=== PATIENT | female | born 1970 | race Caucasian/White ===

== ENCOUNTER 2019-02-07 10:52 | Day surgery (SDC) | payer BC ==
[2019-02-06 13:51] VITALS: BMI 31.8
[2019-02-07 12:19] LABS: #Basophils 0.1 thou/uL (0.0-0.2); #Eosinphils 0.1 thou/uL (0.0-0.7); #Lymphocytes 3.1 thou/uL (1.20-3.40); #Monocytes 0.5 thou/uL (0.11-0.59); #Neutrophils 3.4 thou/uL (1.40-6.50); %Basophils 1.3 % (0.0-1.0); %Eosinophils 1.7 % (0.0-10.0); %Lymphocytes 42.8 % (21.0-51.0); %Monocytes 6.4 % (0.0-10.0); %Neutrophils 47.9 % (42.0-75.0); Hemoglobin 12.8 g/dL (12.0-16.0); Mean Corpuscular HGB CONC 33.4 g/dL (32.0-36.0); Mean Corpuscular Hemoglobin 29.5 pg (27.0-31.0); Mean Corpuscular Volume 88.4 fL (78.0-98.0); Mean Platelet Volume 8.2 fL (7.4-10.4); Platelet Count 223 thou/uL (130-400); Red Blood Cell (RBC) Count 4.35 mill/uL (4.20-5.40); White Blood Cell (WBC) Count 7.2 thou/uL (4.8-10.8)
[2019-02-07 12:36] LABS: Anion Gap 13 mmol/L (10-20); BUN (Urea Nitrogen) 21 mg/dL (7.0-18.7); Calc. Creatinine Clearance 160 mL/min (70-130); Carbon Dioxide 24 mmol/L (22-29); Chloride 105 mmol/L (98-107); Estimated GFR-MDRD Greater than 90; Glucose 85 mg/dL (70-105); Potassium 3.5 mmol/L (3.5-5.1); Sodium 138 mmol/L (136-145)
[2019-02-07 12:44] LABS: INR-International Normal Ratio 1.1; PTT 29.8 SEC (22.9-36.1)
[2019-02-07] MEDS ORDERED: PROPOFOL 200 MG/20 ML VIAL ONE (16:51)
--- NOTE | 2019-02-11 22:41 | EKG ---
Test Reason : PREOP MUNDO Blood Pressure : / mmHG Vent. Rate : 057 BPM Atrial Rate : 352 BPM P-R Int : 000 ms QRS Dur : 144 ms QT Int : 504 ms P-R-T Axes : 000 -53 127 degrees QTc Int : 490 ms Atrial flutter with variable A-V block Left axis deviation Left bundle branch block Abnormal ECG When compared with ECG of 03-APR-2016 23:54, (Unconfirmed) Atrial flutter has replaced Atrial fibrillation Left bundle branch block is now Present Criteria for Septal infarct are no longer Present Confirmed by Sandra HERNANDEZ ([id number]) on 02/11/2019 10:41:26 PM Referred By: VERONIKA Confirmed By:Sandra HERNANDEZ
--- NOTE | 2019-02-11 22:42 | EKG ---
Test Reason : POST MUNDO/CARDIOVERSI Blood Pressure : / mmHG Vent. Rate : 050 BPM Atrial Rate : 050 BPM P-R Int : 000 ms QRS Dur : 150 ms QT Int : 518 ms P-R-T Axes : 083 -25 112 degrees QTc Int : 472 ms Sinus bradycardia with 1st degree A-V block with Blocked Premature atrial complexes with occasional P remature ventricular complexes Left bundle branch block Abnormal ECG When compared with ECG of 07-FEB-2019 11:47, (Unconfirmed) Sinus rhythm has replaced Atrial flutter Confirmed by Sandra HERNANDEZ ([id number]) on 02/11/2019 10:41:49 PM Referred By: VERONIKA Confirmed By:Sandra HERNANDEZ
--- NOTE | 2019-02-21 16:43 | OP ---
DATE OF SERVICE: 02/07/19 PREPROCEDURE DIAGNOSIS: Atrial fibrillation. The patient is a pleasant 48-year-old white female who comes to the to the hospital for planned MUNDO c ardioversion. Please see MUNDO report for details. After adequate sedation was achieved by the anesthesiology department and cleared by the MUNDO, one sin gle AICD shock was delivered at 100 joules successfully converting her from atrial fibrillation into sinus rhythm. The patient tolerated the procedure well. RECOMMENDATIONS: 1. Continued antiarrhythmic and anticoagulation. 2. Will follow-up in the office in one month.
== END 2019-02-07 14:10 | disposition home or self-care (01) ==
LOC: CCL 10:52
PROVIDERS: ATTEND Internal Medicine Cardiovascular Disease
DX: I48.91 Unspecified atrial fibrillation (principal); I42.9 Cardiomyopathy, unspecified; Z79.82 Long term (current) use of aspirin; Z88.0 Allergy status to penicillin
CPT/HCPCS: 80048; 85025; 85610; 85730; 92960; 93005; 93010; 93312; J2704

== ENCOUNTER 2019-11-27 06:18 | Outpatient (CLI) | payer BC, OTHER ==
[2019-11-27 09:25] VITALS: BMI 33.3
[2019-11-27 10:33] LABS: #Basophils 0.1 thou/uL (0.0-0.2); #Eosinphils 0.1 thou/uL (0.0-0.7); #Monocytes 0.4 thou/uL (0.11-0.59); #Neutrophils 3.9 thou/uL (1.40-6.50); %Basophils 1.1 % (0.0-1.0); %Eosinophils 1.4 % (0.0-10.0); %Lymphocytes 30.8 % (21.0-51.0); %Monocytes 6.2 % (0.0-10.0); %Neutrophils 60.4 % (42.0-75.0); Hemoglobin 13.5 g/dL (12.0-16.0); Mean Corpuscular HGB CONC 32.1 g/dL (32.0-36.0); Mean Corpuscular Hemoglobin 28.6 pg (27.0-31.0); Mean Corpuscular Volume 89.1 fL (78.0-98.0); Mean Platelet Volume 8.5 fL (7.4-10.4); Platelet Count 237 thou/uL (130-400); RBC Distribution Width 13.8 % (11.5-14.5); Red Blood Cell (RBC) Count 4.73 mill/uL (4.20-5.40); White Blood Cell (WBC) Count 6.4 thou/uL (4.8-10.8)
[2019-11-27 10:37] LABS: PTT 34.9 sec (22.9-36.1); Prothrombin Time 13.6 sec (12.0-14.7)
[2019-11-27 11:18] LABS: Anion Gap 13 mmol/L (10-20); BUN (Urea Nitrogen) 19 mg/dL (7.0-18.7); Calc. Creatinine Clearance 153 mL/min (70-130); Calcium 9.3 mg/dL (7.8-10.44); Carbon Dioxide 23 mmol/L (22-29); Chloride 107 mmol/L (98-107); Estimated GFR-MDRD 85; Glucose 98 mg/dL (70-105); Potassium 4.1 mmol/L (3.5-5.1); Sodium 139 mmol/L (136-145)
[2019-11-27 18:20] LABS: SARS-CoV-2 MS2 Positive; SARS-CoV-2 N Gene Negative; SARS-CoV-2 S Gene Negative; SARS-CoV-2 orf1ab Negative
== END 2019-11-27 06:19 | disposition home or self-care (01) ==
LOC: LABBT 06:18
PROVIDERS: ATTEND Internal Medicine Cardiovascular Disease
DX: Z01.818 Encounter for other preprocedural examination (principal); Z11.59 Encounter for screening for other viral diseases; I48.91 Unspecified atrial fibrillation
CPT/HCPCS: 80048; 85025; 85610; 85730; 87635; 93005; 93010; U0003

== ENCOUNTER 2019-12-01 07:23 | Observation (INO) | payer BC ==
[2019-12-01] MEDS ORDERED: Fentanyl 100 MCG/2 ML VIAL ONE (09:53)
[2019-12-01] MEDS ORDERED: Heparin 10,000 UNITS/1 ML VIAL ONE ×2 (11:15→13:33)
[2019-12-01] MEDS ORDERED: Ondansetron PF 4 MG/2 ML Vial ONE (13:15)
[2019-12-01] MEDS ORDERED: Lidocaine 1% PF 5 ML VIAL ONE (13:15)
[2019-12-01] MEDS ORDERED: Rocuronium Bromide 10 MG/ML (10ML VIAL) ONE (13:15)
[2019-12-01] MEDS ORDERED: Dexamethasone 20 MG/5 ML VIAL ONE (13:15)
[2019-12-01] MEDS ORDERED: Glycopyrrolate 0.2 MG/ML 5 ML SYRINGE ONE (13:15)
[2019-12-01] MEDS ORDERED: PROPOFOL 200 MG/20 ML VIAL ONE (13:15)
[2019-12-01] MEDS ORDERED: EPHEDRINE 25 MG/5 ML SYRINGE ONE (13:15)
[2019-12-01] MEDS ORDERED: Isoproterenol 0.2 MG/1 ML AMP ONE (13:33)
[2019-12-01] MEDS ORDERED: Heparin 25,000 units/D5W 500 ML ONE (13:33)
[2019-12-01] MEDS ORDERED: Protamine Sulfate 50 MG/5 ML VIAL ONE (14:44)
[2019-12-01] MEDS ORDERED: Promethazine HCl 25 MG/ML VIAL ONE (15:12)
[2019-12-01] MEDS ORDERED: Ketorolac Tromethamine 30 MG/ML VIAL IVP PRN (15:27)
[2019-12-01] MEDS ORDERED: Acetaminophen/Codeine 30-300mg Tablet PO PRN ×2 (15:30)
--- NOTE | 2019-12-01 15:53 | OP ---
DATE OF PROCEDURE: 12/01/2019 PROCEDURE PERFORMED: Electrophysiology study and radiofrequency ablation. REASON FOR PROCEDURE: Ms. Lockett is a 49-year-old woman with history of longstanding atrial fibrillation. Last cardioversion was in 2016. She has now typical like atrial fibrillation at her young age with previous failure with antiarrhythmic agent. Plan is to undergo a pulmonary venous isolation. She has been anticoagulated over months. DESCRIPTION OF PROCEDURE: The patient received general anesthesia by anesthesia specialist. After adequate level of sedation achieved, the left and right femoral venous area was prepped, draped, and anesthetized using subcutaneous lidocaine. Under ultrasound guidance, both femoral veins were cannulated x2 with a multipurpose needle. On the left side, an 11-Irish sheath was used to advance an intracardiac echocardiogram probe, which was used throughout the procedure to monitor catheter manipulation, pericardial space, and the transseptal procedure. Also from the left femoral vein, we advanced a duo-Deca catheter, which was then positioned in the right atrium and CS positions. With the right femoral venous sheaths, two 8-Irish short sheaths were introduced in a similar fashion to the left. Through the sheath, a ThermoCool SFST catheter was advanced to the right atrium. 3D map of the right atrium, His bundle, CS, os, and isthmus location was obtained. Following that, the patient is in atrial fibrillation at baseline, transseptal puncture was performed after IV heparin was administered in a bolus and a drip fashion. IV heparin was periodically adjusted according to the ACT measurement to keep ACT levels over 350 throughout the case. The transseptal sheaths were used to perform transseptal puncture with the help of a powered Ryan needle under ultrasound and fluoroscopic guidance x2. Through the SL1 transseptal sheaths, a ThermoCool SFST catheter and a 20-pole Lasso catheter were advanced to the left atrium. 3D map of the left atrium was obtained with noting a left common femoral vein at 2 separate right-sided veins. Significant scar burden was noted in the left atrium and right atrium both. Following that, both right-sided pulmonary vein and the left-sided pulmonary vein was isolated with circumferential ablations. Also, a roof line and an inferoposterior line was placed to isolate the posterior wall. Throughout the posterior wall burst, esophageal echocardiogram probe was used to measure temperatures to avoid excessive heating. Any heating in excess seen prompted high-flow irrigation in that area for advanced cooling. Following this, the patient remained in atrial fibrillation. Therefore, inferior wall ablation was performed over the CS roof. Also, additional lesions were placed in the left anterior inferior area anterior to the left pulmonary vein. Additional lesions were also placed in the right posterior septum and anteroseptal area at the site of significant fractionation. Despite these efforts, the patient remained in atrial fibrillation. At this point, cardioversion was performed, restoring sinus rhythm. Occasional PACs were seen and atrial flutter was spontaneously induced. Atrial flutter with cycle length of 330 milliseconds with typical activation from proximal CS to distal seen. Proximal CS overdrive pacing entering the tachycardia in the post pacing interval was closed matching the tachycardia cycle length, suggestive of right atrial origin. The ablation catheter was then withdrawn from the left side and a cavotricuspid isthmus ablation was performed, prolonging the transisthmus time up to 240 milliseconds. Transisthmus block was demonstrated by longest transisthmus time measured by the ablation line. Following that, no further atrial flutter is seen. Isuprel was administered and all 4 pulmonary veins were rechecked. Any reconnection was re-ablated. At the end of the case, the pericardial space showed no change or significant effusion. Also, the cardiac silhouette did not change. The catheter was removed from the left side and IV heparin was stopped and reversed with protamine. The long sheaths were exchanged for short sheaths again and the sheaths were closed using a Vascade closure device on all femoral venous access sites under ultrasound guidance. 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 Following findings were noted. HV interval was 56 milliseconds. No definite VA conduction through LV pacing is seen. Total of 111 lesions placed at 40 lamb with RF duration 35 minutes and 3 seconds. CONCLUSION: 1. Successful isolation of the 2 right and left common pulmonary vein as well as the posterior wall. 2. Additional lesion in the inferior left atrium over the CS roof and the intra-atrial septum was placed on the left atrium. 3. No evidence of accessory pathway. 4. Typically an isthmus within the atrial flutter is seen and the cavotricuspid isthmus was ablated successfully. PLAN: Resume oral anticoagulation. Monitor for recurrent arrhythmias. Job ID: [id number]
[2019-12-01 17:26] VITALS: BMI 34.8
[2019-12-01] MEDS: Apixaban 5 MG TAB PO SCH (20:13)
[2019-12-01] MEDS ORDERED: Zolpidem Tartrate 5 MG TAB PO SCH (21:00)
[2019-12-02] MEDS ORDERED: Aspirin Chewable 81 MG TAB PO SCH (09:00)
[2019-12-02] MEDS ORDERED: Metoprolol Tartrate 25 MG TAB PO SCH (09:00)
[2019-12-02] MEDS: Apixaban 5 MG TAB PO SCH (10:17)
[2019-12-02 12:29] VITALS: BP 121/63; TEMP 96.7
--- NOTE | 2019-12-02 16:24 | EKG ---
Test Reason : Blood Pressure : / mmHG Vent. Rate : 064 BPM Atrial Rate : 064 BPM P-R Int : 310 ms QRS Dur : 152 ms QT Int : 540 ms P-R-T Axes : 088 -53 103 degrees QTc Int : 557 ms Sinus rhythm with 1st degree A-V block with occasional Premature ventricular complexes Left axis deviation Left bundle branch block Abnormal ECG Confirmed by EBONY MISHRA ([id number]) on 12/02/2019 4:23:43 PM Referred By: Confirmed By:EBONY MISHRA
--- NOTE | 2019-12-02 16:25 | EKG ---
Test Reason : Blood Pressure : / mmHG Vent. Rate : 079 BPM Atrial Rate : 079 BPM P-R Int : 322 ms QRS Dur : 138 ms QT Int : 442 ms P-R-T Axes : 078 -43 127 degrees QTc Int : 506 ms Sinus rhythm with 1st degree A-V block with Premature atrial complexes with Abberant conduction Left axis deviation Non-specific intra-ventricular conduction block Inferior infarct , age undetermined Cannot rule out Anteroseptal infarct , age undetermined T wave abnormality, consider lateral ischemia Abnormal ECG Confirmed by EBONY MISHRA ([id number]) on 12/02/2019 4:24:38 PM Referred By: LUNA Confirmed By:EBONY MISHRA
--- NOTE | 2019-12-02 22:11 | DIS ---
DATE OF ADMISSION: 12/01/2019 DATE OF DISCHARGE: 12/02/2019 DIAGNOSIS: Atrial fibrillation, longstanding and persistent. PROCEDURES PERFORMED: Include electrophysiology study with three-dimensional mapping and ablation, 35 minutes RF energy lesions delivered. CONCLUSION: Successful isolation of the 2 right and left common pulmonary veins as well as a posterior wall, ablation of typical atrial flutter along the cavotricuspid isthmus line successful. PLAN AND RECOMMENDATIONS: Resume anticoagulation. Monitor for arrhythmia recurrence. HISTORY OF PRESENT ILLNESS: Ms. Lockett is a 49-year-old woman with a history of longstanding and persistent atrial fibrillation. She was more recently found to be in typical atrial flutter and elected to undergo electrophysiology study and ablation. This was performed on 12/01/2019 as detailed above. She is doing well and tolerated this without any postablation complications thus far. Her vital signs have been stable. She feels well and is eager to discharge home. Telemetry shows she is maintaining sinus rhythm with no early recurrence of her atrial arrhythmias. She is seen to have noticeable first-degree AV block of 322 milliseconds. In addition to an atypical left bundle-branch block, QRS of 138 milliseconds. Frequent ventricular ectopy was noted. Following the ablation, which is quieted down, but is still occurring at some regularity. SUBJECTIVE: The patient feels well. She denies any cardiac concerns or complaints, bleeding at the groin site or palpitations. She does endorse some minor chest discomfort post ablation. OBJECTIVE: VITAL SIGNS: Stable. Heart rate 71, blood pressure 121/64, respirations 16, and oxygen 94% on room air. GENERAL: The patient is alert and oriented. Speech is clear. Affect is appropriate. She is in no apparent distress. NEUROLOGIC: Grossly intact. NECK: Supple without jugular venous distention. HEART: Rate is irregularly irregular with crisp S1 and S2. LUNGS: Clear to auscultation bilaterally. SKIN: Bilateral groin sites are stable without evidence of hematoma or bleeding complication. Hepatojugular reflux is negative. DISCHARGE INSTRUCTIONS: No lifting more than 10 pounds or driving a car for 1 week. No soaking baths until bilateral groin sites are well healed. No missing any doses of Eliquis or anticoagulation post ablation. Contact [facility] with any postablation concerns, questions, and follow up in 6 weeks. DISCHARGE MEDICATIONS INSTRUCTION: Resuming home medications of; 1. Ambien as needed. 2. Metoprolol tartrate 12.5 mg b.i.d. 3. Aspirin 81 mg daily. 4. Eliquis 5 mg b.i.d. New prescriptions; 1. Carafate 1 g q.i.d. x2 weeks. 2. Protonix 40 mg daily x1 month, then she may resume her home omeprazole dose. 3. Lasix 40 mg p.o. p.r.n. edema to be taken with Klor-Con 20 mEq. CONDITION AT DISCHARGE: Stable. Job ID: [id number]
== END 2019-12-02 12:45 | disposition home or self-care (01) ==
LOC: SDC 07:23 → 2NO 15:23
PROVIDERS: ADMIT Internal Medicine Cardiovascular Disease; ATTEND Internal Medicine Cardiovascular Disease
PROC: 02583ZZ Destruction of Conduction Mechanism, Percutaneous Approach (ICD-10-PCS; principal; 2019-12-01)
PROC: 02K83ZZ Map Conduction Mechanism, Percutaneous Approach (ICD-10-PCS; 2019-12-01)
PROC: 4A023FZ Measurement of Cardiac Rhythm, Percutaneous Approach (ICD-10-PCS; 2019-12-01)
PROC: 4A0234Z Measurement of Cardiac Electrical Activity, Percutaneous Approach (ICD-10-PCS; 2019-12-01)
DX: I48.11 Longstanding persistent atrial fibrillation (principal); I48.3 Typical atrial flutter; I44.7 Left bundle-branch block, unspecified; I49.3 Ventricular premature depolarization; I42.9 Cardiomyopathy, unspecified; R63.8 Other symptoms and signs concerning food and fluid intake; Z68.34 Body mass index [BMI] 34.0-34.9, adult; Z79.01 Long term (current) use of anticoagulants; Z79.82 Long term (current) use of aspirin; Z79.899 Other long term (current) drug therapy; Z88.0 Allergy status to penicillin
CPT/HCPCS: 76942; 85347; 93005; 93010; 93613; 93622; 93623; 93655; 93656; 93662; C1732; C1884; G0378; J1100; J1644; J2001; J2405; J2550; J2704; J2720; J3010

== ENCOUNTER 2020-02-27 07:10 | Outpatient (CLI) | payer BC, OTHER ==
[2020-02-27 12:06] LABS: Hemoglobin 13.8 g/dL (12.0-16.0); Mean Corpuscular HGB CONC 32.3 g/dL (32.0-36.0); Mean Corpuscular Hemoglobin 28.5 pg (27.0-31.0); Mean Corpuscular Volume 88.1 fL (78.0-98.0); Platelet Count 244 thou/uL (130-400); RBC Distribution Width 13.2 % (11.5-14.5); Red Blood Cell (RBC) Count 4.86 mill/uL (4.20-5.40); White Blood Cell (WBC) Count 5.5 thou/uL (4.8-10.8)
[2020-02-27 12:30] LABS: PTT 38.2 sec (22.9-36.1); Prothrombin Time 13.2 sec (12.0-14.7)
[2020-02-27 12:53] LABS: Anion Gap 12 mmol/L (10-20); BUN (Urea Nitrogen) 16 mg/dL (7.0-18.7); Calc. Creatinine Clearance 0 mL/min (70-130); Carbon Dioxide 27 mmol/L (22-29); Chloride 105 mmol/L (98-107); Estimated GFR-MDRD 79; Glucose 97 mg/dL (70-105); Potassium 4.4 mmol/L (3.5-5.1); Sodium 140 mmol/L (136-145)
[2020-02-27 16:39] LABS: SARS-CoV-2 MS2 Positive; SARS-CoV-2 N Gene Negative; SARS-CoV-2 S Gene Negative; SARS-CoV-2 by NAA Not Detected (NotDetected); SARS-CoV-2 orf1ab Negative
--- NOTE | 2020-03-03 20:13 | EKG ---
Test Reason : Blood Pressure : / mmHG Vent. Rate : 076 BPM Atrial Rate : 083 BPM P-R Int : 000 ms QRS Dur : 156 ms QT Int : 452 ms P-R-T Axes : 000 262 056 degrees QTc Int : 508 ms Ventricular-paced rhythm Abnormal ECG No previous ECGs available Confirmed by DR. Patricia LANDAVERDE MD ([id number]) on 03/03/2020 8:12:50 PM Referred By: [facility] Confirmed By:DR. Patricia LANDAVERDE MD
== END 2020-02-27 07:11 | disposition home or self-care (01) ==
LOC: LABBT 07:10
PROVIDERS: ATTEND Internal Medicine Cardiovascular Disease
DX: Z01.818 Encounter for other preprocedural examination (principal); Z20.828 Contact with and (suspected) exposure to other viral communicable diseases
CPT/HCPCS: 80048; 85027; 85610; 85730; 87635; 93005; 93010; U0003

== ENCOUNTER 2020-03-03 06:04 | Day surgery (SDC) | payer BC ==
[2020-03-03] MEDS ORDERED: PROPOFOL 20 ML ONE (07:04)
--- NOTE | 2020-03-03 10:27 | OP ---
DATE OF PROCEDURE: 03/03/2020 PROCEDURE PERFORMED: Electrical external cardioversion report. REASON FOR PROCEDURE: Ms. Lockett is a 49-year-old woman with history of persistent atrial fibrillation with bundle branch block, Mobitz type second-degree AV block, status post pulmonary venous isolation in November, also BiV pacemaker implantation in January 2020, who has persistent atrial fibrillation occurring early post PVI. She has been well anticoagulated without fail and flecainide has started about a week ago. She is here for a planned cardioversion. DESCRIPTION OF PROCEDURE: The patient received propofol by Anesthesia specialist. After adequate level of sedation achieved, a synchronized 100-joule shock failed to convert the patient back to sinus rhythm, but the followup 200-joule shock converted her back to sinus rhythm. The pacemaker was reprogrammed 70 beats per minute. Preference pacing was programmed on and atrial ATP is also programmed on. CONCLUSION: 1. Successful cardioversion. 2. Adequate functioning biventricular pacemaker with changes as above. PLAN: Continue anticoagulation and short-term antiarrhythmic therapy with flecainide. Consider stopping in three-month postablation. Job ID: [id number]
== END 2020-03-03 08:54 | disposition home or self-care (01) ==
LOC: CCL 06:04
PROVIDERS: ATTEND Internal Medicine Cardiovascular Disease
PROC: 5A2204Z Restoration of Cardiac Rhythm, Single (ICD-10-PCS; principal; 2020-03-03)
DX: I48.11 Longstanding persistent atrial fibrillation (principal); I44.1 Atrioventricular block, second degree; I44.7 Left bundle-branch block, unspecified; Z79.899 Other long term (current) drug therapy; Z88.0 Allergy status to penicillin; Z95.0 Presence of cardiac pacemaker
CPT/HCPCS: 92960; J2704

== ENCOUNTER 2021-02-09 13:44 | Outpatient (CLI) | payer BC | END 2021-02-09 13:45 | disposition home or self-care (01) | LOC: ULT 13:44 | PROVIDERS: ATTEND Nurse Practitioner Family | DX: I42.9 Cardiomyopathy, unspecified (principal) | CPT/HCPCS: 93306 ==

== ENCOUNTER 2021-08-29 08:38 | Outpatient (CLI) | payer BC | END 2021-08-29 08:39 | disposition home or self-care (01) | LOC: BICULT 08:38 | PROVIDERS: ATTEND Physician Assistant | DX: R92.8 Other abnormal and inconclusive findings on diagnostic imaging of breast (principal) ==

== ENCOUNTER 2024-01-18 10:47 | Outpatient (CLI) | payer BC | END 2024-01-18 10:48 | disposition home or self-care (01) | LOC: BICMAMMO 10:47 | PROVIDERS: ATTEND Physician Assistant | DX: Z12.31 Encounter for screening mammogram for malignant neoplasm of breast (principal) | CPT/HCPCS: 77063; 77067 ==

== ENCOUNTER 2025-02-11 06:15 | Day surgery (SDC) | payer BC ==
[2025-02-10 08:52] VITALS: BMI 29.2
[2025-02-11] MEDS ORDERED: PROPOFOL 0 ML ONE (07:18)
[2025-02-11] MEDS ORDERED: Lidocaine 1% PF 5 ML VIAL ONE (07:33)
== END 2025-02-11 08:36 | disposition home or self-care (01) ==
LOC: SDC 06:15
PROVIDERS: ATTEND Internal Medicine Cardiovascular Disease
PROC: B24BZZ4 Ultrasonography of Heart with Aorta, Transesophageal (ICD-10-PCS; principal; 2025-02-11)
DX: I48.19 Other persistent atrial fibrillation (principal); I08.1 Rheumatic disorders of both mitral and tricuspid valves; I50.20 Unspecified systolic (congestive) heart failure; Z95.818 Presence of other cardiac implants and grafts; Z95.0 Presence of cardiac pacemaker; Z90.89 Acquired absence of other organs; Z98.890 Other specified postprocedural states; Z88.0 Allergy status to penicillin; Z79.01 Long term (current) use of anticoagulants
CPT/HCPCS: 93312; J2704